=== PATIENT | female | born 1995 | race Hispanic/Latino ===

== ENCOUNTER 2022-02-16 00:36 | Emergency (ER) | payer MEDICAID ==
[2022-02-16 01:36] LABS: Basophils # (Auto) 0.1 K/mm3 (0.0-0.1); Basophils % (Auto) 0.7 % (0.0-1.8); Eosinophils # (Auto) 0.1 K/mm3 (0.0-0.4); Hematocrit 35.5 % (30.3-42.9); Hemoglobin 12.3 gm/dl (10.1-14.3); Lymphocytes # (Auto) 1.2 K/mm3 (1.2-5.4); Lymphocytes % (Auto) 10.1 % (13.4-35.0); Mean Corpuscular HGB Conc 35 % (30-34); Mean Corpuscular Volume 87 fl (79-97); Monocytes # (Auto) 0.3 K/mm3 (0.0-0.8); Monocytes % (Auto) 2.9 % (0.0-7.3); Platelet Count 267 K/mm3 (140-440); Red Blood Count 4.08 M/mm3 (3.65-5.03); Red Cell Distribution Width 13.3 % (13.2-15.2)
[2022-02-16 01:58] LABS: Alanine Aminotransferase 11 units/L (7-56); Albumin 4.1 g/dL (3.9-5); Blood Urea Nitrogen 6 mg/dL (7-17); Calcium 9.7 mg/dL (8.4-10.2); Hemolysis Index 2
[2022-02-16 01:59] LABS: BUN/Creatinine Ratio 15
[2022-02-16 03:11] LABS: Bilirubin,Urine NEG (Negative); Blood,Urine NEG (Negative); Color,Urine Yellow (Yellow); Hyaline Casts,Urine 1 /LPF; Mucus,Urine FEW /HPF; Protein,Urine <15 mg/dL mg/dL (Negative); Urobilinogen,Urine < 2.0 mg/dL (<2.0)
[2022-02-16] MEDS ORDERED: ONDANSETRON 4 MG/2 ML INJ IV ONE (04:49)
[2022-02-16] MEDS ORDERED: SODIUM CHLORIDE 0.9% 1000 ML 1,000 ML IV ONE (04:49)
[2022-02-16] MEDS ORDERED: SODIUM CHLORIDE 0.9% 1000 ML 1,000 ML ONE (04:50)
[2022-02-16] MEDS ORDERED: ONDANSETRON 4 MG/2 ML INJ ONE (04:50)
--- NOTE | 2022-02-16 05:49 | Emergency Department Report ---
ED HPI - General Chief complaint: Abdominal Pain Stated complaint: 16 WKS PELVIC PAIN Source: patient Mode of arrival: Ambulatory Limitations: No Limitations - History of Present Illness Initial comments: 26-year-old 17-week female presents to the ED for vomiting and abdominal cramping x1 day. Patient states after eating a [employer] tuna sandwich she started vomiting x3. Patient denies any vaginal bleeding or discharge. Patient is 3 para 1 A1. Denies any chest pain ,shortness of breath, fever or chills. No acute distress noted. No ill appearance noted. MD Complaint: abdominal pain Onset/Timin -: days(s) Location: pelvis Severity scale (0 -10): 2 Quality: cramping Consistency: intermittent Improves with: none Worsens with: none Associated symptoms: nausea/vomiting Vaginal bleeding: none OB History - Current : no complications OB History - Previous Pregnancies: eclampsia Pre-marleen care: followed by OB - Related Data : 3 Para: 1 Ab: 1 Previous Rx's Medication Instructions Recorded Last Taken Type Ondansetron [Zofran Odt] 4 mg PO Q8HR 3 Days #12 tab.rapdis 02/16/22 Unknown Rx Allergies Allergy/AdvReac Type Severity Reaction Status Date / Time No Known Allergies Allergy Verified 02/16/22 00:53 ED Review of Systems ROS: Stated complaint: 16 WKS PELVIC PAIN Other details as noted in HPI Constitutional: denies: chills, fever Eyes: denies: eye pain, eye discharge, vision change ENT: denies: ear pain, throat pain Respiratory: denies: cough, shortness of breath, wheezing Cardiovascular: denies: chest pain, palpitations Endocrine: no symptoms reported Gastrointestinal: vomiting. denies: abdominal pain, nausea, diarrhea Genitourinary: denies: urgency, dysuria, discharge Musculoskeletal: denies: back pain, joint swelling, arthralgia Skin: denies: rash, lesions Neurological: denies: headache, weakness, paresthesias Psychiatric: denies: anxiety, depression Hematological/Lymphatic: denies: easy bleeding, easy bruising ED Past Medical Hx - Medications Home Medications: Home Medications Medication Instructions Recorded Confirmed Last Taken Type Ondansetron [Zofran Odt] 4 mg PO Q8HR 3 Days #12 tab.rapdis 02/16/22 Unknown Rx ED Physical Exam - General Limitations: No Limitations General appearance: alert, in no apparent distress - Head Head exam: Present: atraumatic, normocephalic - Eye Eye exam: Present: normal appearance - ENT ENT exam: Present: mucous membranes moist - Neck Neck exam: Present: normal inspection - Respiratory Respiratory exam: Present: normal lung sounds bilaterally. Absent: respiratory distress - Cardiovascular Cardiovascular Exam: Present: regular rate, normal rhythm. Absent: systolic murmur, diastolic murmur, rubs, gallop - GI/Abdominal GI/Abdominal exam: Present: soft, normal bowel sounds - Extremities Exam Extremities exam: Present: normal inspection - Back Exam Back exam: Present: normal inspection - Neurological Exam Neurological exam: Present: alert, oriented X3 - Psychiatric Psychiatric exam: Present: normal affect, normal mood - Skin Skin exam: Present: warm, dry, intact, normal color. Absent: rash ED Course Vital Signs 02/16/22 02/16/22 00:43 05:59 Temperature 99.0 F 98.0 F Pulse Rate 107 H 66 Respiratory 18 15 Rate Blood Pressure 150/86 Blood Pressure 130/70 [Left] O2 Sat by Pulse 97 100 Oximetry ED Medical Decision Making - Lab Data Result diagrams: 02/16/22 01:14 02/16/22 01:14 - Radiology Data [facility] [address] [place] [address] Ultrasound Report Signed Patient: DELMIS STANTON MR#: [id number] : 1995 Acct:[id number] Age/Sex: 26 / F ADM Date: 02/16/22 Loc: ED Attending Dr: Ordering Physician: ZAYRA FISHMAN Date of Service: 02/16/22 Procedure(s): US OB >= 14 weeks Fetus Accession Number(s): [id number] cc: ZAYRA FISHMAN ULTRASOUND OBSTETRIC LIMITED INDICATION / CLINICAL INFORMATION: vaginal bleeding. Clinical Gestational Age (GA) in weeks, days: 16 weeks 6 days TECHNIQUE: Transabdominal. COMPARISON: None available. FINDINGS: Single live intrauterine with measurements corresponding to a gestational age of 16 weeks and 6 days. Estimated weight is 147 g. HEART RATE (beats per minute): 154 PRESENTATION: Breech. ADDITIONAL FINDINGS: Cervix is closed, measuring 4.1 cm. IMPRESSION: Single live intrauterine with ultrasound age of 16 weeks and 6 days. No significant abnormality. Signer Name: Susana Scott MD Signed: 02/16/2022 6:00 AM Workstation Name: [id number] Transcribed By: JOSE ALBERTO Dictated By: SUSANA SCOTT MD Electronically Authenticated By: SUSANA SCOTT MD Signed Date/Time: 02/16/22 0600 DD/ 0554 TD/TT: - Medical Decision Making 26-year-old 17-week female presents to the ED for vomiting and abdominal cramping x1 day. Patient states after eating a [employer] tuna sandwich she started vomiting x3. Patient denies any vaginal bleeding or discharge. Patient is 3 para 1 A1. Patient is currently being followed by [facility]. denies any chest pain ,shortness of breath, fever or chills. No acute distress noted. No ill appearance noted. Physical examination is unremarkable. Patient given normal hyxdny4P IV and Zofran 4 mg IV. Patient states no further vomiting since arrival to the ED. physical examination is unremarkable. Rechecked the patient is resting quietly quietly and comfortable and feeling better. I discussed the results of diagnostic study, my clinical impression and the plan for further treatment with the patient. Patient agrees with plan and discharge at this present time. All question addressed. I have given the patient instruction regarding a diagnosis ,expectation ,follow- up and return precaution. I explained to the patient that emergent condition may arise and to return to the ED for new worsen and any new persisting condition. I have explained the importance of following up with the primary care physician or referral physician listed below has instructed. The patient verbalized understanding of discharge instruction. Critical care attestation.: If time is entered above; I have spent that time in minutes in the direct care of this critically ill patient, excluding procedure time. ED Disposition Clinical Impression: Vomiting affecting Disposition: 01 HOME / SELF CARE / HOMELESS Is pt being admited?: No Does the pt Need Aspirin: No Condition: Stable Instructions: Abdominal Pain (ED), Hyperemesis Gravidarum Additional Instructions: Take medication as prescribed return to the ED for any worsening symptom Prescriptions: Ondansetron [Zofran Odt] 4 mg PO Q8HR 3 Days #12 tab.rapdis Referrals: [facility] [Provider Group] - 3-5 Days Forms: Work/School Release Form(ED) Time of Disposition: 06:26
[2022-02-16 06:01] VITALS: BP 130/70
--- NOTE | 2022-02-16 06:04 | Ultrasound Report ---
ULTRASOUND OBSTETRIC LIMITED INDICATION / CLINICAL INFORMATION: vaginal bleeding. Clinical Gestational Age (GA) in weeks, days: 16 weeks 6 days TECHNIQUE: Transabdominal. COMPARISON: None available. FINDINGS: Single live intrauterine with measurements corresponding to a gestational a ge of 16 weeks and 6 days. Estimated weight is 147 g. HEART RATE (beats per minute): 154 PRESENTATION: Breech. ADDITIONAL FINDINGS: Cervix is closed, measuring 4.1 cm. IMPRESSION: Single live intrauterine with ultrasound age of 16 weeks and 6 days. No significant abnorma lity. Signer Name: Bereket Scott MD Signed: 02/16/2022 6:00 AM Workstation Name: [id number]
== END 2022-02-16 07:05 | disposition home or self-care (01) ==
LOC: ED 00:36
DX: O21.9 Vomiting of pregnancy, unspecified (principal); Z3A.17 17 weeks gestation of pregnancy
CPT/HCPCS: 36415; 76805; 80053; 81001; 84702; 85025; 96361; 96374; 99284; J2405; J7030